=== PATIENT | female | born 1980 | race Caucasian/White ===

== ENCOUNTER → 2018-08-01 | Day surgery (SDC) | payer BC ==
[~2018-08-01] MED LIST: BUPIVACAINE HCL 0.5 % INJ/PF 30 ML SDV ONE; LIDOCAINE 1% INJ-PF (10 MG/ML) 30 ML SDV ONE; METHYLPREDNISOLONE ACETATE INJ 40 MG/1 ML ML ONE
--- NOTE | 2018-08-07 08:49 | OPERATIVE REPORT E ---
Operative Report NAME: RINKU NEELY : 1980 AGE: 37Y DATE OF SURGERY: 08/01/2018 ROOM: PREOPERATIVE DIAGNOSIS: Sacroiliitis with intractable pain, left side. POSTOPERATIVE DIAGNOSIS: Sacroiliitis with intractable pain, left side. OPERATIVE PROCEDURE: Radiofrequency cooled ablation at the sacral ala level, the S1 level, S2 level, and S3 level under fluoroscopic guidance. SURGEON: ERICA DOUGLAS M.D. INDICATION: Successful prior response to blockade. COMPLICATIONS: None. ANESTHESIA: Local. PROCEDURAL NOTE: After obtaining informed consent and advising the patient of the risks and benefits, including bleeding and infection, serious aggravation of pain, serious nerve injury, allergic reaction and , the patient was taken to the fluoroscopic procedural suite. She was placed comfortably in the prone position. She was prepped and draped with chlorhexidine and standard draping towels. Under fluoroscopy, the sacral spine was evaluated on the left side. Suitable entrance site for skin approach to the sacral ala level S1, S2, and S3 levels were identified. The skin was anesthetized with 1% lidocaine with bicarb. Small incisions were placed in the skin to facilitate placement of the cooled RF trocar. Under fluoroscopic guidance, the trocars were placed at the 4 selected locations. Position was checked in the AP and lateral views. Cooled RF probes were placed in the S1, S2, and S3 levels. Lesions were made at approximately the 3 o'clock location at each location. The needles were then repositioned after cooled RF therapy for 2 minutes 30 seconds at 60 degrees to the 1 o'clock position. When this was completed, the needle trocar and cooled RF Stylette were removed at the S3 level and the Stylette was placed in the sacral ala level. A third lesion was made at approximately the 5 o'clock position. Once all lesions were completed and instrumentation was removed, the region was cleansed and sterile dressings were applied. The patient remained neurologically and physiologically stable. She was then released for outpatient followup. It should be noted that local anesthesia was applied approximately 1 mL of 0.25% bupivacaine to each trocar prior to lesioning, and at the completion of the procedure, each trocar was injected with 20 mg of Depo Medrol and flushed with 0.5 mL of 0.25% bupivacaine. DICTATING PHYSICIAN: ERICA DOUGLAS M.D. [id number] PHY#: [id number] ID: [id number] JOB#: [id number] ACCT: [id number] cc:ERICA DOUGLAS M.D. >
== END ==
LOC: RAD 15:35
PROVIDERS: ATTEND Pain Medicine Interventional Pain Medicine
DX: M96.1 Postlaminectomy syndrome, not elsewhere classified (principal); M46.1 Sacroiliitis, not elsewhere classified; M54.5 Low back pain; Z88.5 Allergy status to narcotic agent
CPT/HCPCS: 64635; 64640 ×3; J3490 ×2; J1020

== ENCOUNTER → 2019-04-16 | Outpatient (CLI) | payer BC ==
--- NOTE | 2019-04-16 12:38 | RADIOLOGY REPORT (SQ) ---
EXAM DESCRIPTION: U/S ABDOMEN COMPLETE W/DOPPLER COMPLETED DATE/TIME: 04/16/2019 9:17 am REASON FOR STUDY: R10.9 UNSPECIFIED ABDOMINAL PAIN R10.9 UNSPECIFIED ABDOMINAL PAIN COMPARISON: None. TECHNIQUE: Dynamic and static grayscale images acquired of the abdomen and recorded on PACS. Additio nal selected color Doppler and spectral images recorded. Note: Study does not meet criteria for complete doppler/duplex scan LIMITATIONS: None. FINDINGS: PANCREAS: No masses. Visualized pancreatic duct normal caliber. LIVER: No masses. Echotexture normal. LIVER VASCULATURE: Normal directional flow of the main portal vein and hepatic veins. GALLBLADDER: No stones. Normal wall thickness. No pericholecystic fluid. ULTRASOUND-DETECTED MATHIAS'S SIGN: Negative. INTRAHEPATIC DUCTS AND COMMON DUCT: CBD and intrahepatic ducts normal caliber. No filling defects. INFERIOR VENA CAVA: Normal flow. AORTA: No aneurysm. RIGHT KIDNEY: Normal size. Normal echogenicity. No solid or suspicious masses. No hydronephros is. No calcifications. LEFT KIDNEY: Normal size. Normal echogenicity. No solid or suspicious masses. No hydronephrosi s. No calcifications. SPLEEN: Normal size. No solid masses. PERITONEAL AND PLEURAL SPACES: No ascites or effusions. OTHER: No other significant finding. IMPRESSION: NORMAL ABDOMINAL ULTRASOUND. TECHNICAL DOCUMENTATION: JOB ID: [id number] [employer]- All Rights Reserved Reading location - IP/workstation name: [email or web address]
== END ==
LOC: RAD 08:30
PROVIDERS: ATTEND Family Medicine Geriatric Medicine
DX: R10.9 Unspecified abdominal pain (principal)
CPT/HCPCS: 76700; 93976

== ENCOUNTER → 2019-05-24 | Outpatient (CLI) | payer BC ==
[2019-05-24 11:09] LABS: CHOLESTEROL 145.57 mg/dL (0-200); TRIGLYCERIDES 105 mg/dL (<150)
[2019-05-24 11:20] LABS: DIRECT LDL 83 mg/dL (<100)
== END ==
LOC: OD 09:13
PROVIDERS: ATTEND Family Medicine Geriatric Medicine
DX: E78.5 Hyperlipidemia, unspecified (principal); Z79.899 Other long term (current) drug therapy
CPT/HCPCS: 36415; 80061; 84460

== ENCOUNTER → 2019-10-22 | Outpatient (CLI) | payer OTHER ==
[2019-10-22 10:20] LABS: CHOLESTEROL 167.52 mg/dL (0-200); TRIGLYCERIDES 151 mg/dL (<150)
[2019-10-22 10:31] LABS: DIRECT LDL 98 mg/dL (<100)
[2019-10-22 10:35] LABS: VLDL CHOLESTEROL 30.2 mg/dL (10-31)
== END ==
LOC: OD 09:20
PROVIDERS: ATTEND Family Medicine Geriatric Medicine
DX: E78.5 Hyperlipidemia, unspecified (principal); Z79.899 Other long term (current) drug therapy
CPT/HCPCS: 36415; 80061; 84460

== ENCOUNTER → 2020-01-21 | Outpatient (CLI) | payer OTHER ==
[2020-01-21 10:01] LABS: CHOLESTEROL 127.77 mg/dL (0-200); TRIGLYCERIDES 90 mg/dL (<150)
[2020-01-21 10:12] LABS: DIRECT LDL 73 mg/dL (<100)
== END ==
LOC: OD 08:07
PROVIDERS: ATTEND Family Medicine Geriatric Medicine
DX: E78.5 Hyperlipidemia, unspecified (principal); Z79.899 Other long term (current) drug therapy
CPT/HCPCS: 36415; 80061; 84460

== ENCOUNTER → 2020-03-19 | Outpatient (CLI) | payer OTHER ==
--- NOTE | 2020-03-20 12:03 | Pulmonary Function Test ---
Pulmonary Function Test Date of Procedure:: 03/19/20 - 03/20/2020 received INDICATION:: Dyspnea Referring Provider: Machinery Engineer: Nini Valenzuela [employer] - Report Spirometry: Spirometry: pre-FVC: 3.94 L 107% pre-FEV:1 2.88 L 94% pre-FEV1/FVC %: 73 predicted: 84 [id number]%: 2.19 L 83% Lung Volume: Total lung capacity: 5.49 L 97% Vital capacity: 4.24 L 115% Inspiratory capacity: 2.25 L FRC N2: 3.24 L 107% ERV: 1.57 L RV: 1.26 L 66% RV/TLC %:: 23 predicted 32 Diffusion Capactity: DLCO: 26.5 107% DLCO/VA: 4.55 103% Impression: Mild obstructive ventilatory defect. No restrictive ventilatory defect. No hyperinflation or air trapping. Normal diffusion capacity.
== END ==
LOC: RT 07:47
PROVIDERS: ATTEND Family Medicine Geriatric Medicine
DX: J45.20 Mild intermittent asthma, uncomplicated (principal)
CPT/HCPCS: 94010; 94727; 94729; 94761

== ENCOUNTER → 2020-04-24 | Outpatient (CLI) | payer OTHER ==
[2020-04-24 09:37] LABS: ABSOLUTE EOSINOPHILS # (AUTO) 0.1 10^3/uL (0.0-0.6); ABSOLUTE LYMPHOCYTES (AUTO) 1.2 10^3/uL (0.5-4.7); ABSOLUTE MONOCYTES (AUTO) 0.4 10^3/uL (0.1-1.4); ABSOLUTE NEUT (AUTO) 5.2 10^3/uL (1.7-8.2); BASOPHILS % (AUTO) 0.6 % (0-2); EOSINOPHILS % (AUTO) 1.8 % (0-6); HEMOGLOBIN 13.3 g/dL (12.0-15.5); LYMPHOCYTES % (AUTO) 17.6 % (13-45); MEAN CORPUSCULAR HEMOGLOBIN 30.8 pg (27.0-33.4); MEAN CORPUSCULAR VOLUME 90 fl (80-97); MONOCYTES % (AUTO) 5.2 % (3-13); PLATELET COUNT 203 10^3/uL (150-450); RED BLOOD COUNT 4.32 10^6/uL (3.72-5.28); RED CELL DISTRIBUTION WIDTH 13.4 % (11.5-14.0); SEGMENTED NEUTROPHILS % (AUTO) 74.8 % (42-78); TOTAL CELLS COUNTED % (AUTO) 100 %
[2020-04-24 09:58] LABS: ANION GAP 11 (5-19); BLOOD UREA NITROGEN 15 mg/dL (7-20); CALCIUM 9.5 mg/dL (8.4-10.2); CARBON DIOXIDE 26 mmol/L (22-30); CHLORIDE 103 mmol/L (98-107); GLUCOSE 90 mg/dL (75-110); POTASSIUM 4.5 mmol/L (3.6-5.0)
== END ==
LOC: OD 08:27
PROVIDERS: ATTEND Family Medicine Geriatric Medicine
DX: J30.9 Allergic rhinitis, unspecified (principal); Z79.899 Other long term (current) drug therapy
CPT/HCPCS: 36415; 80048; 85025

== ENCOUNTER → 2020-08-05 | Outpatient (CLI) | payer OTHER ==
[2020-08-05 11:17] LABS: CHOLESTEROL 142.68 mg/dL (0-200); TRIGLYCERIDES 166 mg/dL (<150)
[2020-08-05 11:29] LABS: DIRECT LDL 77 mg/dL (<100)
[2020-08-05 11:40] LABS: VLDL CHOLESTEROL 33.2 mg/dL (10-31)
== END ==
LOC: OD 09:27
PROVIDERS: ATTEND Family Medicine Geriatric Medicine
DX: E78.5 Hyperlipidemia, unspecified (principal); Z79.899 Other long term (current) drug therapy
CPT/HCPCS: 36415; 80061; 84460